=== PATIENT | female | born 1980 | race Caucasian/White ===

== ENCOUNTER 2025-05-26 09:14 | Outpatient (CLI) | payer OTHER, SELFPAY ==
[2025-05-30 14:17] LABS: HPV Source Cervix
[2025-06-01 13:39] LABS: Pap Test Digital Imaging Done
== END 2025-05-26 09:15 | disposition home or self-care (01) ==
PROVIDERS: Visit Provider Physician Assistant
DX: Z12.4 Encounter for screening for malignant neoplasm of cervix (principal); E66.9 Obesity, unspecified; Z68.33 Body mass index [BMI] 33.0-33.9, adult
CPT/HCPCS: 80061; 84443; 87624; 87625; 88141; 88142; 88175